=== PATIENT | male | born 1975 | race Caucasian/White ===

== ENCOUNTER 2023-04-22 08:18 | Emergency (ER) | payer BC ==
[~2023-04-22] VITALS: Ht 167.6 cm; Wt 102.5 kg
[2023-04-22 08:22] VITALS: BP 138/81; PULSE 64; RESP 18; TEMP 98.5; O2SAT 96
[2023-04-22] MEDS ORDERED: TAMS0.4C96 PO (08:43)
[2023-04-22] MEDS ORDERED: CEPH-588 PO (08:43)
[2023-04-22] MEDS ORDERED: TRAM-748 PO (08:50)
[2023-04-22 08:58] VITALS: BP 138/81; PULSE 64; RESP 18; TEMP 98.5; O2SAT 96
== END 2023-04-22 08:58 | disposition home or self-care (01) ==
LOC: MED 08:18
DX: R30.0 Dysuria (principal); R31.9 Hematuria, unspecified; Z79.899 Other long term (current) drug therapy; Z79.2 Long term (current) use of antibiotics
CPT/HCPCS: 81002; 99283